=== PATIENT | male | born 1990 | race African-American/Black ===

== ENCOUNTER 2016-10-31 19:30 | Emergency (ER) | payer OTHER ==
[~2016-10-31] VITALS: Ht 190.5 cm; Wt 102.1 kg
[2016-10-31 21:56] VITALS: BP 134/82
== END 2016-10-31 21:58 | disposition home or self-care (01) ==
LOC: ER 19:30
DX: R51 Headache (principal); F17.210 Nicotine dependence, cigarettes, uncomplicated; F15.10 Other stimulant abuse, uncomplicated